=== PATIENT | male | born 1945 | race Caucasian/White ===

== ENCOUNTER 2024-01-12 20:26 | Emergency (ER) | payer MEDICARE, OTHER, SELFPAY ==
[2024-01-12 20:40] VITALS: BP 168/93
[2024-01-12 21:42] VITALS: BP 144/82
[2024-01-12 21:52] LABS: % Basophils 0.9 % (0-2); % Eosinophils 0.9 % (0-6); % Immature Granulocytes 0.2 % (0-0.5); % Lymphocytes 17.1 % (20.5-51.1); % Monocytes 10.1 % (1.7-9.3); % Neutrophils 70.8 % (42.2-75.2); Absolute Basophils 0.1 10^3/uL (0-0.2); Absolute Eosinophils 0.1 10^3/uL (0-0.7); Absolute Lymphocytes 1.8 10^3/uL (1.2-3.4); Absolute Monocytes 1.1 10^3/uL (0.1-0.6); Absolute Neutrophils 7.5 10^3/uL (1.4-6.5); Hematocrit 38.7 % (39.0-52.0); Hemoglobin 13.5 g/dL (13.0-18.0); Mean Corp Hgb Conc. 34.9 g/dL (33.0-37.0); Mean Corpuscular Hgb 28.4 pg (27.0-31.0); Mean Corpuscular Volume 81.5 fL (80.0-94.0); Nucleated Red Blood Cells % 0 % (-); Platelet Count 332 10^3/uL (130-400); Red Blood Cell Count 4.75 10^6/uL (4.70-6.10); Red Cell Dist. Width 14.7 % (11.5-14.5); White Blood Cell Count 10.6 10^3/uL (4.8-10.8)
[2024-01-12 22:00] VITALS: BP 150/89
[2024-01-12 22:14] LABS: ALT (SGPT) 19 U/L (0-50); AST (SGOT) 25 U/L (17-59); Albumin 3.7 g/dl (3.5-5.0); Alkaline Phosphatase 78 U/L (38-126); Blood Urea Nitrogen 16 mg/dl (9-20); Calcium 9.5 mg/dl (8.4-10.2); Carbon Dioxide 25 mmol/L (22-30); Chloride 106 mmol/L (98-107); Glucose 166 mg/dl (70-99); Potassium 4.1 mmol/L (3.5-5.1); Sodium 137 mmol/L (135-145); Total Bilirubin 0.5 mg/dl (0.2-1.3); Total Protein 6.3 g/dl (6.3-8.2); eGFR > 60.00
--- NOTE | 2024-01-12 22:46 | EDRN ---
Patient called me into room, he had urinated himself, asked if he knows when he needs to urinate, states yes, changed patients brief along with gown and linen and resting comfortably with call hubbard in hand, urinal placed at bedside
[2024-01-12 23:11] LABS: Alcohol None Detected
[2024-01-12] MEDS: NSS 1000 IV (23:21)
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
[2024-01-13 00:25] LABS: Urine Albumin Negative (Neg - Trace); Urine Bilirubin Negative (Negative); Urine Character Clear (Clear); Urine Color Yellow; Urine Glucose Negative (Negative); Urine Ketone Negative (Negative); Urine Leukocyte Trace (Negative); Urine Nitrite Negative (Negative); Urine Occult Blood Negative (Negative); Urine Urobilinogen Negative (Neg - 1+)
--- NOTE | 2024-01-13 00:31 | EDRN ---
Patient mental hygiene consultant hubbard stating he needed to urinate, assisted patient with urinal and sent sample, new brief applied.
[2024-01-13 00:38] LABS: Amphetamines Negative (Negative); Barbiturates Negative (Negative); Benzodiazepines Negative (Negative); Buprenorphine Negative (Negative); Cocaine Negative (Negative); Marijuana Negative (Negative); Methadone Negative (Negative); Methamphetamines Negative (Negative); Opiates Negative (Negative); Phencyclidine Negative (Negative); Tricyclic Antidepressants Negative (Negative)
[2024-01-13 00:50] LABS: Urine Amorphous Seen; Urine Bacteria Few (Negative); Urine Red Blood Cell None Seen /HPF (0-2); Urine White Cell 0-2 /HPF (0-5)
--- NOTE | 2024-01-13 00:56 | EDRN ---
Patient web application tester hubbard needing to urinate, used urinal and back in bed resting.
[2024-01-13 03:19] VITALS: BP 133/75
[2024-01-13 07:03] VITALS: BP 149/83
--- NOTE | 2024-01-13 07:45 | EDRN ---
Attempted to call the patient's sister to pick patient up. No answer on the number that was provided. Unable to leave a VM as the 'mailbox is full' did send an SMS message with the hospital phone number. Will try to call again a little later.
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
[2024-01-13 08:00] VITALS: BP 155/93
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
== END 2024-01-13 10:15 | disposition home or self-care (01) ==
LOC: EMR 20:26
PROVIDERS: Student in an Organized Health Care Education/Training Program; EMERGENCY PHYSICIAN Emergency Medicine
DX: F03.A0 Unspecified dementia, mild, without behavioral disturbance, psychotic disturbance, mood disturbance, and anxiety (principal); R53.1 Weakness; I67.82 Cerebral ischemia; N39.0 Urinary tract infection, site not specified; R26.89 Other abnormalities of gait and mobility; R26.2 Difficulty in walking, not elsewhere classified; H54.61 Unqualified visual loss, right eye, normal vision left eye; F17.290 Nicotine dependence, other tobacco product, uncomplicated
CPT/HCPCS: 99284; 96360; 70450; 80053; 80306; 81003; 81015; 82077; 83605; 85025; 87040; 93005